=== PATIENT | male | born 1965 | race American Indian/Alaskan Native ===

== ENCOUNTER 2024-01-20 10:24 | Day surgery (SDC) | payer OTHER ==
[~2024-01-20] VITALS: Ht 172.7 cm; Wt 77.1 kg
[2024-01-20] MEDS ORDERED: SODIUM PHOSPHATE 118 ML ENEM RC SCH (10:55)
[2024-01-20] MEDS ORDERED: fentaNYL citrate 0.05 MG/ML VIAL ONE (13:11)
[2024-01-20] MEDS ORDERED: MIDAZOLAM 2 MG/2 ML VIAL ONE (13:12)
[2024-01-20] MEDS: MIDAZOLAM 2 MG/2 ML VIAL IVP ONE (13:48)
[2024-01-20] MEDS: fentaNYL citrate 0.05 MG/ML VIAL IVP ONE (13:49)
[2024-01-20] MEDS: LIDOCAINE 2% 100 MG/5 ML UJET TP ONE (14:02)
== END 2024-01-20 15:10 | disposition home or self-care (01) ==
LOC: MDS 10:24 → MMU 10:24 → MDS 15:10
PROVIDERS: ATTEND Internal Medicine Gastroenterology
DX: Z12.11 Encounter for screening for malignant neoplasm of colon (principal); K76.6 Portal hypertension; I51.9 Heart disease, unspecified; K63.5 Polyp of colon; K57.30 Diverticulosis of large intestine without perforation or abscess without bleeding; F10.21 Alcohol dependence, in remission; F17.210 Nicotine dependence, cigarettes, uncomplicated; Z79.899 Other long term (current) drug therapy; Z98.890 Other specified postprocedural states
CPT/HCPCS: 43235; 45385; J2250; J3010

== ENCOUNTER 2024-08-22 08:11 | Day surgery (SDC) | payer OTHER ==
[~2024-08-22] VITALS: Ht 172.7 cm; Wt 73.9 kg
[2024-08-22 08:39] LABS: BASOPHILS % (AUTO) 0.4 % (0.0-2.0); EOSINOPHILS # (AUTO) 0.3 K/uL (0-0.4); EOSINOPHILS % (AUTO) 3.5 % (0.0-4.0); HEMATOCRIT 49.1 % (36-52); HEMOGLOBIN 16.8 g/dL (12.0-18.0); LYMPHOCYTES # (AUTO) 1.9 K/uL (2.0-11.5); LYMPHOCYTES % (AUTO) 20.1 % (20.5-51.1); MEAN CORPUSCULAR HEMOGLOBIN 32 pg (27-31); MEAN CORPUSCULAR HGB CONC 34 g/dL (33-37); MEAN CORPUSCULAR VOLUME 92.1 fL (80-94); MONOCYTES # (AUTO) 0.5 K/uL (0.8-1.0); MONOCYTES % (AUTO) 5.8 % (1.7-9.3); NEUTROPHILS # (AUTO) 6.6 K/uL (1.8-7.7); NEUTROPHILS % (AUTO) 70.2 % (42.2-75.2); PLATELET COUNT (AUTO) 199 K/uL (140-450); RED BLOOD CELL COUNT(AUTO) 5.32 MIL/uL (4.20-6.10); RED CELL DISTRIBUTION WIDTH 13.4 % (11.6-13.7); WHITE BLOOD COUNT (AUTO) 9.4 K/uL (4.8-10.8)
[2024-08-22 08:53] LABS: INR 0.98 (0.8-1.2); PARTIAL THROMBOPLASTIN TIME 25.9 secs (22-35.6); PROTHROMBIN TIME 10.3 secs (10.8-13.4)
== END 2024-08-22 09:00 | disposition home or self-care (01) ==
LOC: MDS 08:11 → MMU 08:12 → MDS 09:00
PROVIDERS: ATTEND Internal Medicine Gastroenterology
DX: K70.9 Alcoholic liver disease, unspecified (principal); Z53.8 Procedure and treatment not carried out for other reasons; F17.210 Nicotine dependence, cigarettes, uncomplicated
CPT/HCPCS: 36415; 85025; 85610; 85730